=== PATIENT | male | born 1975 | race Caucasian/White ===

== ENCOUNTER 2017-04-25 13:16 | Emergency (ER) | payer OTHER ==
[2017-04-25 13:22] VITALS: RESP 16; O2SAT 98
--- NOTE | 2017-04-25 13:28 | EDPHY ---
H & P Stated Complaint: Sharp pain in L chest today;worse w/deep breath Time Seen by Provider: 04/25/17 13:28 HPI/ROS: CHIEF COMPLAINT: Chest pain HISTORY OF PRESENT ILLNESS: The patient presents to the ED with a 1 day history of sharp left-sided pleuritic chest pain. The patient reports his symptoms began an hour ago. He denies prior history of the symptoms. The patient reports that he is active. He has no history of exertional chest pain or shortness of breath. He has no risk factors for coronary artery disease. The patient denies any history of fall or trauma. The patient denies any fever , cough or congestion. The patient rates his pain as a 5/10. The patient does play hockey and may have injured his chest while playing earlier in the week. REVIEW OF SYSTEMS: A comprehensive 10 point review of systems is otherwise negative aside from elements mentioned in the history of present illness. Source: Patient Exam Limitations: No limitations - Personal History Current Tetanus Diphtheria and Acellular Pertussis (TDAP): Yes - Medical/Surgical History Other PMH: none - Social History Smoking Status: Never smoked - Physical Exam Exam: General Appearance: Alert, no distress Eyes: Pupils equal and round no pallor or injection ENT, Mouth: Mucous membranes moist Respiratory: There are no retractions, lungs are clear to auscultation Cardiovascular: Regular rate and rhythm Gastrointestinal: Abdomen is soft and nontender, no masses, bowel sounds normal Neurological: A&O, normal motor function, normal sensory exam, normal cranial nerves Skin: Warm and dry, no rashes Musculoskeletal: Neck is supple nontender Extremities: symmetrical, full range of motion Psychiatric: Patient is oriented X 3, there is no agitation Constitutional: Initial Vital Signs Temperature (C) 36.7 C 04/25/17 13:17 Heart Rate 65 04/25/17 13:17 Respiratory Rate 16 04/25/17 13:17 Blood Pressure 158/98 H 04/25/17 13:17 O2 Sat (%) 98 04/25/17 13:17 O2 Delivery Mode Room Air Allergies/Adverse Reactions: erythromycin lactobionate [From Erythrocin] Allergy (Verified 04/25/17 13:16) SWELLING, SHORT OF BREATH Penicillins Allergy (Verified 04/25/17 13:16) SWELLING, SHORT OF BREATH Home Medications: Medication Instructions Recorded NK [No Known Home Meds] 04/25/17 Medical Decision Making - Diagnostics EKG Interpretation: EKG: Complete interpretation has been separately recorded in the [employer] archive. Summary impression: Sinus rhythm, rate 64 Imaging Results: Imaging Impressions Chest X-Ray 04/25/17 14:26 Impression: 1. Mild bronchitis/airways disease. 2. No pneumonia, pleural effusion or pneumothorax. ED Course/Re-evaluation: The patient presents to the emergency department with a 1 day history of sharp mild left-sided chest pain. The patient denies prior history of the symptoms. He has no risk factors for coronary artery disease. The patient's D-dimer is negative which I feel adequately excludes pulmonary embolism. The patient's chest x-ray demonstrates no evidence of a rib fracture or pneumothorax. The patient has no evidence of an anemia or abnormal initial troponin. The patient did receive 30 mg of IV Toradol. I re-evaluated the patient at 3:00 p.m. and he reports he is feeling better after treatment with Toradol. At this point time I favor a musculoskeletal etiology of his chest pain. He has no risk factors for cardiac disease he exercises vigorously without chest pain or shortness of breath and has a negative workup today. My plan will be to initiate NSAIDs for the next several days. He is advised to return to the ED for any worsening chest pain, exertional chest pain or other concerns. The patient will be given customary chest pain aftercare instructions. Differential Diagnosis: Differential diagnosis considered includes costochondritis, pleurisy, pulmonary embolism, arrhythmia, acute coronary syndrome, myocardial infarction - Data Points Laboratory Results: Laboratory Results 04/25/17 13:40 04/25/17 13:40 04/25/17 04/25/17 04/25/17 13:40 13:40 13:40 WBC 6.81 10^3/uL 10^3/uL (3.80-9.50) RBC 5.07 10^6/uL 10^6/uL (4.40-6.38) Hgb 15.3 g/dL g/dL (13.7-17.5) Hct 44.3 % % (40.0-51.0) MCV 87.4 fL fL (81.5-99.8) MCH 30.2 pg pg (27.9-34.1) MCHC 34.5 g/dL g/dL (32.4-36.7) RDW 12.9 % % (11.5-15.2) Plt Count 238 10^3/uL 10^3/uL (150-400) MPV 10.3 fL fL (8.7-11.7) Neut % (Auto) 57.9 % % (39.3-74.2) Lymph % (Auto) 32.3 % % (15.0-45.0) [place] % (Auto) 7.9 % % (4.5-13.0) Eos % (Auto) 0.9 % % (0.6-7.6) Baso % (Auto) 0.7 % % (0.3-1.7) Nucleat RBC Rel Count 0.0 % % (0.0-0.2) Absolute Neuts (auto) 3.94 10^3/uL 10^3/uL (1.70-6.50) Absolute Lymphs (auto) 2.20 10^3/uL 10^3/uL (1.00-3.00) Absolute Monos (auto) 0.54 10^3/uL 10^3/uL (0.30-0.80) Absolute Eos (auto) 0.06 10^3/uL 10^3/uL (0.03-0.40) Absolute Basos (auto) 0.05 10^3/uL 10^3/uL (0.02-0.10) Absolute Nucleated RBC 0.00 10^3/uL 10^3/uL (0-0.01) Immature Gran % 0.3 % % (0.0-1.1) Immature Gran # 0.02 10^3/uL 10^3/uL (0.00-0.10) D-Dimer < 0.27 ug/mLFEU ug/mLFEU (0.00-0.50) Sodium 143 mEq/L mEq/L (135-145) Potassium 4.0 mEq/L mEq/L (3.5-5.2) Chloride 100 mEq/L mEq/L (97-110) Carbon Dioxide 25 mEq/l mEq/l (22-31) Anion Gap 18 mEq/L H mEq/L (8-16) BUN 16 mg/dL mg/dL (7-23) Creatinine 1.1 mg/dL mg/dL (0.7-1.3) Estimated GFR > 60 Glucose 126 mg/dL H mg/dL (70-100) Calcium 9.7 mg/dL mg/dL (8.5-10.4) Troponin I < 0.012 ng/mL ng/mL (0.000-0.034) Medications Given: Discontinued Medications Aspirin (Aspirin) 324 mg PO EDNOW ONE Stop: 04/25/17 13:43 Last Admin: 04/25/17 13:45 Dose: 324 mg Ketorolac Tromethamine (Toradol) 30 mg IVP EDNOW ONE Stop: 04/25/17 13:44 Last Admin: 04/25/17 13:47 Dose: 30 mg Departure - Departure Disposition: Home, Routine, Self-Care Clinical Impression: Chest pain Condition: Good Instructions: Chest Pain (ED) Additional Instructions: 1. Take Ibuprofen or Motrin 600 mg by mouth three times a day. 2. Based upon the testing done in the Emergency Department today we see no evidence of a heart attack. 3. I believe her chest pain is likely musculoskeletal in nature. I would like you to return to the emergency department for any chest pain which is worsening , becoming exertional, any pain that is changing with radiation to your neck arm or back. For any ongoing mild symptoms I do recommend consideration a Cardiology follow-up. You have been given the contact information. 4. Please contact the foreclosure specialist you have been referred to schedule this appointment as soon as possible. Their offices are typically open from 8:30am- 5pm M-F. Referrals: Tiffani Perez MD [Medical Doctor] - As per Instructions
--- NOTE | 2017-04-25 13:40 | CPEKG ---
Heart Rate: 64 RR Interval: 938 P-R Interval: 152 QRSD Interval: 98 QT Interval: 400 QTC Interval: 413 P [place]: 18 QRS [place]: 48 T Wave [place]: 53 EKG Severity - NORMAL ECG - EKG Impression: SINUS RHYTHM Electronically Signed By: Richie Mulligan 25-Apr-2017 13:45:13
[2017-04-25] MEDS ORDERED: ASPIRIN 81 MG CHEWABLE TAB PO ONE (13:42)
[2017-04-25] MEDS ORDERED: KETOROLAC 30 MG/1 ML SDV IVP ONE (13:43)
[2017-04-25 13:50] LABS: PLATELET COUNT 238 10^3/uL (150-400)
[2017-04-25 15:20] VITALS: BP 134/74; PULSE 74; TEMP 98.2
== END 2017-04-25 15:19 | disposition home or self-care (01) ==
DX: R07.9 Chest pain, unspecified (principal)
CPT/HCPCS: 96374; J1885

== ENCOUNTER 2018-02-28 04:08 | Emergency (ER) | payer OTHER ==
--- NOTE | 2018-02-28 04:33 | EDPHY ---
H & P Time Seen by Provider: 02/28/18 04:32 HPI/ROS: CC: throat pain, shortness of breath HPI: This 42-year-old male with no significant past medical history presents emergency department tonight complaining of throat pain and shortness of breath. His 10-year-old son was diagnosed with the flu 3 days ago and the family was all placed on Tamiflu. He is taking 75 mg twice a day. He has been feeling achy all over. His throat has become painful and tonight it was "excruciating". He is not having any difficulty swallowing. He feels like it is difficult to get a deep breath in as well. He has been coughing but there is no color to the phlegm. He does not know if he had a fever. He has not had nausea, vomiting, chest pain, abdominal pain, calf pain or swelling. No long trips or travel. REVIEW OF SYSTEMS: Constitutional: No fever, no chills. Eyes: No discharge. ENT: See HPI. Respiratory: See HPI. Cardiac: No chest pain, no palpitations. Gastrointestinal: No abdominal pain, no vomiting. Genitourinary: No hematuria. Musculoskeletal: See HPI. Skin: No rashes. Neurological: Mild headache. Past Medical/Surgical History: PMH: Denied PSH: Knee surgery FH: Denied Allergies to Erythromycin and penicillins Meds: Tamiflu and Advil No PCP. Moved to [place] from [place], [place] a few years ago. Social History: Denies tobacco products; occasional ETOH use; no marijuana use. Smoking Status: Never smoked Physical Exam: General Appearance: Alert, moderate distress. Eyes: Pupils equal and round no pallor or injection. ENT, Mouth: Mucous membranes are moist. No significant erythema, no exudates. No swelling. Uvula midline. Neck: Supple, no meningeal signs. No JVD. Respiratory: There are no retractions, lungs are clear to auscultation. Cardiovascular: Regular rate and rhythm. No murmurs, gallops, or rubs. Gastrointestinal: Abdomen is soft and nontender, no masses, bowel sounds normal. Neurological: Awake and alert, sensory and motor exams grossly normal. Skin: Warm and dry, no rashes. Musculoskeletal: Extremities are symmetrical, full range of motion. No calf swelling, warmth, cords, or erythema. Psychiatric: Patient is oriented X 3, there is no agitation. DIFFERENTIAL DIAGNOSIS: After history and physical exam differential diagnosis was considered for but not limited to and in no particular order: influenza, viral pharyngitis, strep pharyngitis, reactive airway disease, bronchitis, pneumonia. Unlikely PE (negative PERC criteria). Constitutional: Initial Vital Signs Temperature (C) 99.5 F 02/28/18 04:20 Heart Rate 74 02/28/18 04:20 Respiratory Rate 20 02/28/18 04:20 Blood Pressure 147/80 H 02/28/18 04:20 O2 Sat (%) 93 02/28/18 04:20 O2 Delivery Mode Room Air Allergies/Adverse Reactions: erythromycin lactobionate [From Erythrocin] Allergy (Verified 04/25/17 13:16) SWELLING, SHORT OF BREATH Penicillins Allergy (Verified 04/25/17 13:16) SWELLING, SHORT OF BREATH Home Medications: Medication Instructions Recorded Tamiflu 02/28/18 Medical Decision Making - Diagnostics Imaging Results: 2 view CXR: Negative by my read. Imaging: I viewed and interpreted images myself ED Course/Re-evaluation: The patient was seen and examined. Vital signs reviewed and was remarkable for oxygen saturations at approximately 92-94% on room air. Heart rate normal. The patient is afebrile and blood pressure is slightly elevated. He was given a DuoNeb as well as 10 mg oral Decadron. A rapid strep came back negative. Two view chest x-ray was negative as read by me. He should complete the full course of Tamiflu as previously prescribed. He was advised to drink plenty of fluids, rest, continue Tylenol or ibuprofen for pain or fever. He was also given an albuterol inhaler to use 1 or 2 puffs every 4 hr as needed for shortness of breath or wheezing. He should follow up with a primary care provider if not feeling better in 10-14 days (and should definitely establish care for routing physical and blood pressure recheck) or return to the emergency room sooner if symptoms change or worsen as discussed. - Data Points Medications Given: Discontinued Medications Albuterol/Ipratropium (Duoneb) 3 ml IH EDNOW ONE Stop: 02/28/18 04:45 Last Admin: 02/28/18 04:44 Dose: 3 ml Dexamethasone (Decadron Injection) 10 mg PO EDNOW ONE Stop: 02/28/18 04:44 Last Admin: 02/28/18 04:44 Dose: 10 mg Departure - Departure Disposition: Home, Routine, Self-Care Clinical Impression: Influenza, Pharyngitis Condition: Good Instructions: Influenza (ED), Pharyngitis (ED), Albuterol (By breathing) Additional Instructions: Complete the Tamiflu (olseltamivir) as previously directed. Continue Ibuprofen or Acetaminophen as directed for pain or fever. Use the Albuterol inhaler 1-2 puffs every 4 hours as needed for shortness of breath or wheezing. Rest, drink plenty of fluids. Follow up with a primary care provider if not better in 7-10 days or RETURN TO THE EMERGENCY DEPARTMENT if increased shortness of breath, difficulty swallowing, if symptoms change or worsen, or any other concerns. Referrals: Beni Siddiqi DO [Doctor of Osteopathy] - As per Instructions
[2018-02-28] MEDS ORDERED: IPRATROPIUM/ALBUTEROL 3 ML DEYVIAL ONE (04:36)
[2018-02-28] MEDS ORDERED: DEXAMETHASONE 10 MG/ML VIAL ONE (04:40)
[2018-02-28] MEDS ORDERED: SUCROSE 1 EA UDL ONE (04:40)
[2018-02-28] MEDS ORDERED: DEXAMETHASONE 10 MG/ML VIAL PO ONE (04:43)
[2018-02-28] MEDS ORDERED: ALBUTEROL INH PREPACK MDI TAKEHOME ONE (04:44)
[2018-02-28] MEDS ORDERED: IPRATROPIUM/ALBUTEROL 3 ML DEYVIAL IH ONE (04:44)
[2018-02-28 05:30] VITALS: BP 142/88
== END 2018-02-28 05:28 | disposition home or self-care (01) ==
LOC: CED 04:08
DX: J11.1 Influenza due to unidentified influenza virus with other respiratory manifestations (principal)
CPT/HCPCS: 71046-PO; J1100

== ENCOUNTER 2018-03-11 17:29 | Emergency (ER) | payer OTHER ==
[2018-03-11 17:37] VITALS: BP 127/88
--- NOTE | 2018-03-11 17:59 | EDPHY ---
H & P Time Seen by Provider: 03/11/18 17:38 HPI/ROS: CHIEF COMPLAINT: Cough History by patient HISTORY OF PRESENT ILLNESS: 42-year-old man with no significant past medical history presents complaining of persistent cough. Patient was seen here 10 days ago for URI symptoms and subjective fever and was on Tamiflu already for a family member who was positive for influenza. Patient states his symptoms have improved somewhat since his initial visit but he continues to have a persistent cough. He states when he coughs really hard he sometimes gets dizzy and lightheaded. The cough is sometimes productive of some green or yellow sputum. There is no associated nausea or vomiting. The fever has resolved. He denies any difficulty breathing. The cough is not painful. He was given an inhaler for the cough which sort of helps. He has not tried anything else. He does not smoke. He is worried he might have developed pneumonia because of the persistent cough. REVIEW OF SYSTEMS: As in HPI, and all other systems reviewed and are negative Smoking Status: Never smoked Physical Exam: General Appearance: Alert and no distress. Head: normocephalic, atraumatic, no sinus tenderness Eyes: Pupils equal and round no injection. Ears: TM bilaterally clear OP: mucus membranes moist, no tonsillar enlargement, no exudates Neck: no meningismus, no cervical nodes, no submandibular nodes Respiratory: Chest is nontender, lungs are clear to auscultation. No wheezes, rales, rhonchi Cardiac: regular rate and rhythm. S1, S2, no murmurs, gallops, rubs appreciated. Gastrointestinal: Abdomen is soft and nontender, no masses, bowel sounds normal. Musculoskeletal: Neck is supple and nontender. Extremities have full range of motion and are nontender. Skin: No rashes or lesions. Constitutional: Initial Vital Signs Temperature (C) 37.1 C 03/11/18 17:34 Heart Rate 72 03/11/18 17:34 Respiratory Rate 18 03/11/18 17:34 Blood Pressure 127/88 H 03/11/18 17:34 O2 Sat (%) 96 03/11/18 17:34 O2 Delivery Mode Room Air Allergies/Adverse Reactions: erythromycin lactobionate [From Erythrocin] Allergy (Verified 03/11/18 17:33) SWELLING, SHORT OF BREATH Penicillins Allergy (Verified 03/11/18 17:33) SWELLING, SHORT OF BREATH Home Medications: Medication Instructions Recorded Tamiflu 02/28/18 Benzonatate [Tessalon Pearles (RX)] 100 mg PO TID PRN #21 cap 03/11/18 MDM/Departure - [facility] ED Course/Re-evaluation: 42-year-old man presents with persistent cough after influenza infection. I reviewed his old chart. Patient had a negative x-ray 10 days ago when he was seen here. There is no evidence of respiratory compromise. There is no evidence of wheezing or hypoxia. I suspect post infectious persistent cough. We discussed home care conservative measures the patient was given reassurance that is not have pneumonia. - Depart Disposition: Home, Routine, Self-Care Clinical Impression: Cough in adult Condition: Good Instructions: Upper Respiratory Infection (ED) Additional Instructions: You were seen by Dr. Lilliam Melendez today. You have clear lungs and normal oxygen level today. There is no evidence of pneumonia. It is common to have a persistent cough after an upper respiratory infection or flu-like illness. This may persist for a few more weeks I recommend continue to use inhaler for your cough. You may try warm drinks with honey for the cough. You may try Tessalon Perles. Please establish primary care. Return for any worsening or new concerns. Prescriptions: Benzonatate [Tessalon Pearles (RX)] 100 mg PO TID PRN #21 cap PRN Reason: cough Referrals: Patient,NotPresent [Unknown] - As per Instructions
== END 2018-03-11 18:14 | disposition home or self-care (01) ==
LOC: CED 17:29
DX: J06.9 Acute upper respiratory infection, unspecified (principal)